=== PATIENT | male | born 1955 | race African-American/Black ===

== ENCOUNTER 2018-03-31 10:04 | Day surgery (SDC) | payer OTHER ==
[2018-03-31] MEDS ORDERED: MIDAZOLAM 1 MG/ML 2 ML INJ ×2 (12:15)
[2018-03-31] MEDS ORDERED: FENTAnyl 50 MCG/ML VIAL (12:15)
== END 2018-03-31 16:44 | disposition home or self-care (01) ==
LOC: GIL 10:04
DX: Z12.11 Encounter for screening for malignant neoplasm of colon (principal); K64.8 Other hemorrhoids; I10 Essential (primary) hypertension
CPT/HCPCS: 45378